=== PATIENT | male | born 1960 | race Caucasian/White ===

== ENCOUNTER 2018-11-13 15:31 | Outpatient (CLI) | payer OTHER ==
[2018-11-13 16:27] LABS: BASOPHILS # (AUTO) 0.1 X10'3 (0-0.2)
[2018-11-13 16:29] LABS: BASOPHILS % (AUTO) 0.5 % (0-1); EOSINOPHILS # (AUTO) 0.2 X10'3 (0-0.9); EOSINOPHILS % (AUTO) 1.9 % (0-6); LYMPHOCYTES # (AUTO) 6.5 X10'3 (1.1-4.8); LYMPHOCYTES % (AUTO) 49.7 % (21-51); MEAN CORPUSCULAR HEMOGLOBIN 33.5 PG (27.0-31.0); MEAN CORPUSCULAR VOLUME 98.7 FL (78-98); MEAN PLATELET VOLUME 8.3 FL (7.4-10.4); MONOCYTES # (AUTO) 0.6 X10'3 (0-0.9); NEUTROPHILS # (AUTO) 5.6 X10'3 (1.8-7.7); NEUTROPHILS % (AUTO) 42.9 % (42-75); PRE OP HEMATOCRIT 46.8 % (42.0-52.0); PRE OP HEMOGLOBIN 15.9 g/dL (14.0-17.9); PRE OP PLATELET COUNT 161 X10'3 (140-440); RED BLOOD COUNT 4.74 X10'6 (4.70-6.10); RED CELL DISTRIBUTION WIDTH 13.4 % (11.5-14.5)
[2018-11-13 16:34] LABS: ALBUMIN 3.9 G/DL (3.4-5.0); ALBUMIN/GLOBULIN RATIO 1.1 (1.1-1.5); ALKALINE PHOSPHATASE 61 IU/L (46-116); BLOOD UREA NITROGEN 15 MG/DL (7-18); BUN/CREATININE RATIO 11.8 (5.4-32.0); CHLORIDE 106 MMOL/L (99-107); CREATININE 1.27 MG/DL (0.60-1.10); PRE OP ALT 33 U/L (30-65); PRE OP ANION GAP 9 (8-16); PRE OP AST 24 U/L (10-37); PRE OP BILIRUB, TOTAL 0.3 MG/DL (0.0-1.0); PRE OP GLUCOSE 104 MG/DL (70-104); PRE OP POTASSIUM 3.6 MMOL/L (3.4-5.1); PRE OP SODIUM 143 MMOL/L (135-145); TOTAL PROTEIN 7.5 G/DL (6.4-8.2); eGFR 58 ML/MIN
[2018-11-13 16:57] LABS: PRE OP PROTIME 9.8 SECONDS (9.0-12.0)
[2018-11-13 17:07] LABS: TOTAL CELLS COUNTED 100
[2018-11-13 17:08] LABS: PLATELET ESTIMATE NORMAL; SMUDGE CELLS 1+
== END 2018-11-13 23:59 | disposition home or self-care (01) ==
LOC: PRE-OP 15:31 → EDSTATUS 11-14 14:15
PROVIDERS: ATTEND Surgery
DX: Z01.818 Encounter for other preprocedural examination (principal); K40.90 Unilateral inguinal hernia, without obstruction or gangrene, not specified as recurrent; I51.7 Cardiomegaly; I45.81 Long QT syndrome; F17.200 Nicotine dependence, unspecified, uncomplicated
CPT/HCPCS: 36415; 80053; 85025; 85610; 85730; 93005

== ENCOUNTER 2018-12-12 05:21 | Day surgery (SDC) | payer OTHER ==
[~2018-12-12] VITALS: Ht 188 cm; Wt 108.9 kg
[2018-12-12] VITALS (10 sets, daily range): BP systolic 137–164; BP diastolic 70–106
[~2018-12-12 05:21] MED LIST: ringers solution, lacted 1,000 ML IV SCH
[2018-12-12] MEDS ORDERED: cefazolin/dext.iso 2gm/50ml 50 ML IV ONE (05:30)
[2018-12-12] MEDS ORDERED: famotidine 20mg tablet PO ONE (05:30)
[2018-12-12] MEDS ORDERED: LIDOcaine 1% (10mg/ml) 2ml vial ONE (05:58)
[2018-12-12] MEDS ORDERED: LEVO125T PO (06:15)
[2018-12-12 06:46] LABS: EOSINOPHILS # (AUTO) 0.2 X10'3 (0-0.9); RED CELL DISTRIBUTION WIDTH 13.8 % (11.5-14.5)
[2018-12-12] MEDS ORDERED: LIDOcaine 1% 30ml preserv. free vial ONE (06:46)
[2018-12-12 06:47] LABS: ALBUMIN 3.6 G/DL (3.4-5.0); ALKALINE PHOSPHATASE 58 IU/L (46-116); BLOOD UREA NITROGEN 21 MG/DL (7-18); BUN/CREATININE RATIO 18.4 (5.4-32.0); CALCIUM 8.7 MG/DL (8.5-10.1); CHLORIDE 106 MMOL/L (99-107); CREATININE 1.14 MG/DL (0.60-1.10); PRE OP ALT 35 U/L (30-65); PRE OP ANION GAP 9 (8-16); PRE OP AST 25 U/L (10-37); PRE OP BILIRUB, TOTAL 0.4 MG/DL (0.0-1.0); PRE OP GLUCOSE 105 MG/DL (70-104); PRE OP SODIUM 142 MMOL/L (135-145); TOTAL CARBON DIOXIDE 26.6 MMOL/L (24-32); TOTAL PROTEIN 7.2 G/DL (6.4-8.2); eGFR 66 ML/MIN
[2018-12-12] MEDS ORDERED: BUPIVAcaine/PF 2.5 mg/ml (0.25%) 30ml vial ONE (06:47)
[2018-12-12 06:48] LABS: BASOPHILS % (AUTO) 0.3 % (0-1); EOSINOPHILS % (AUTO) 1.8 % (0-6); LYMPHOCYTES # (AUTO) 6.1 X10'3 (1.1-4.8); LYMPHOCYTES % (AUTO) 51.4 % (21-51); MEAN CORPUSCULAR HEMOGLOBIN 33.4 PG (27.0-31.0); MEAN CORPUSCULAR HGB CONC 34.1 g/dL (33.0-36.5); MEAN CORPUSCULAR VOLUME 97.8 FL (78-98); MEAN PLATELET VOLUME 8.4 FL (7.4-10.4); MONOCYTES # (AUTO) 0.8 X10'3 (0-0.9); MONOCYTES % (AUTO) 7.1 % (2-12); NEUTROPHILS # (AUTO) 4.7 X10'3 (1.8-7.7); NEUTROPHILS % (AUTO) 39.4 % (42-75); PRE OP HEMATOCRIT 45.6 % (42.0-52.0); PRE OP HEMOGLOBIN 15.6 g/dL (14.0-17.9); PRE OP PLATELET COUNT 141 X10'3 (140-440); RED BLOOD COUNT 4.66 X10'6 (4.70-6.10)
[2018-12-12] MEDS ORDERED: fentaNYL /PF 50mcg/ml 5ml ampule ONE (07:13)
[2018-12-12] MEDS ORDERED: midazolam 2 mg/2 ml injection ONE (07:13)
[2018-12-12] MEDS ORDERED: ondansetron/PF 4mg/2ml inj ONE (07:15)
[2018-12-12] MEDS ORDERED: LIDOcaine 2% (20mg/ml) 5ml vial ONE (07:15)
[2018-12-12] MEDS ORDERED: propofol inj 20 ML IV ONE (07:15)
[2018-12-12] MEDS ORDERED: neostigmine methylsulfate 1 MG/ML 10ml vial ONE (07:15)
[2018-12-12] MEDS ORDERED: rocuronium 10mg/ml inj IV ONE ×2 (07:15→07:48)
[2018-12-12] MEDS ORDERED: glycopyrrolate 0.2mg/ml inj ONE (07:15)
[2018-12-12] MEDS ORDERED: morphine 4 MG/ML inj SYRINge IV PRN ×2 (07:20)
[2018-12-12] MEDS ORDERED: fentaNYL/PF 50MCG/1 ML 2ML syringe IV PRN (07:20)
[2018-12-12] MEDS ORDERED: hydrALAZINE 20mg/ml inj. IV PRN (07:20)
[2018-12-12] MEDS ORDERED: ringers solution, lacted 1,000 ML IV SCH (07:20)
[2018-12-12] MEDS ORDERED: ondansetron/PF 4mg/2ml inj IV PRN (07:20)
[2018-12-12] MEDS ORDERED: labetalol 20mg/4ml (5mg/ml) syringe IV PRN (07:20)
[2018-12-12] MEDS ORDERED: sevoflurane 250ml liquid IH ONE (07:25)
[2018-12-12] MEDS ORDERED: dexamethasone sod phosphate 10mg/ml inj ONE (07:25)
[2018-12-12] MEDS ORDERED: labetalol 20mg/4ml (5mg/ml) syringe IV ONE (07:34)
[2018-12-12] MEDS ORDERED: hydrALAZINE 20mg/ml inj. IV ONE (07:46)
[2018-12-12 07:59] LABS: PLATELET ESTIMATE NORMAL; TOTAL CELLS COUNTED 100
--- NOTE | 2018-12-12 08:40 | NUR ---
Received from OR via BED , accompanied by Anesthesiologist DR guzmán and report given by Anesthesiolgist. PATIENT WAKING UP, DENIES PAIN, V/S WNL, NEUROVASCULAR CHECKS INTACT, 20G PIV LUE, SCD ON, BANDAIDS TO LAP SIGHTS OF ABDOMEN CDI.
[2018-12-12] MEDS: fentaNYL/PF 50MCG/1 ML 2ML syringe IV PRN ×2 (08:54→09:02)
[2018-12-12] MEDS ORDERED: HYDROcodone/acetaminophen 5mg/325mg tablet PO PRN ×2 (08:55→09:00)
[2018-12-12] MEDS ORDERED: HYDROcodone/acetaminophen 5mg/325mg tablet PO ONE (09:00)
--- NOTE | 2018-12-12 10:00 | NUR ---
PATIENT A&OX4, DENIES PAIN, V/S WNL, NEUROVASCULAR CHECKS INTACT, 20G PIV LUE D/C, SCD OFF, 4 BANDAIDS TO LAP SIGHTS OF ABDOMEN CDI.. I HAVE REVIEWED D/C INSTRUCTIONS WITH PATIENT AND FAMILY HAVE VERBALIZED UNDERSTANDING.PATIENT WAS D/C HOME WITH ALL BELONGINGS AND FAMILY GAVE TRANSPORT HOME.
== END 2018-12-12 10:00 | disposition home or self-care (01) ==
LOC: PAS 05:21 → EDSTATUS 07:30 → PAS 10:00
PROVIDERS: ATTEND Surgery
DX: K40.90 Unilateral inguinal hernia, without obstruction or gangrene, not specified as recurrent (principal); K42.9 Umbilical hernia without obstruction or gangrene; I10 Essential (primary) hypertension; F17.210 Nicotine dependence, cigarettes, uncomplicated; M19.90 Unspecified osteoarthritis, unspecified site; E03.9 Hypothyroidism, unspecified; E66.9 Obesity, unspecified; Z68.30 Body mass index [BMI] 30.0-30.9, adult; Z72.89 Other problems related to lifestyle; Z79.899 Other long term (current) drug therapy; Z96.643 Presence of artificial hip joint, bilateral
CPT/HCPCS: 36415; 49585; 49650; 80053; 85025; C1781; J0360; J2001; J2250; J2270; J2405; J2704; J2710; J3010; J3490; A4215; A4618; J1100; J7120